=== PATIENT | female | born 1935 | race Caucasian/White ===

== ENCOUNTER 2016-10-02 23:40 | Inpatient (IN) | payer BC, MEDICARE, OTHER ==
[~2016-10-02] VITALS: Ht 167.6 cm; Wt 83.4 kg
[2016-10-03] VITALS (18 sets, daily range): BP systolic 102–133; BP diastolic 52–71
[2016-10-03 00:37] LABS: Basophils # (auto) 0 uL; Basophils % (auto) 0.5 % (0.0-2.0); Eosinophils # (auto) 0 uL; Eosinophils % (auto) 0.4 % (0.0-7.0); Hematocrit 39.9 % (36.0-46.0); Hemoglobin 13.1 g/dL (12.2-16.2); Lymphocytes # (auto) 0.3 uL; Lymphocytes % (auto) 12.6 % (10.0-50.0); Mean Corpuscular Hemoglobin 29.4 pg (28.0-32.0); Mean Corpuscular Hgb Conc. 32.8 g/dL (32.0-36.0); Mean Corpuscular Volume 89.5 fL (80.0-100.0); Mean Platelet Volume 7.6 fL (7.4-10.4); Monocytes # (auto) 0.2 uL; Monocytes % (auto) 7.9 % (0.0-12.0); Neutrophils # (auto) 1.7 uL; Neutrophils % (auto) 78.6 % (37.0-80.0); Platelet Count (auto) 176 10^3/uL (140-450); Red Cell Distribution Width 13.2 % (11.6-16.0); White Blood Cell 2.2 10^3/uL (4.4-10.8)
[2016-10-03 00:47] LABS: INR 0.98 (0.9-1.15); Prothrombin Time 10.7 sec (9.37-12.3)
[2016-10-03 00:54] LABS: Albumin 2.8 g/dL (3.4-5.0); Anion Gap 8 (5-15); Aspartate Aminotransferase 20 U/L (15-37); BUN/Creatinine Ratio 24.2; Blood Urea Nitrogen 23 mg/dL (7-18); Calcium 8.4 mg/dL (8.5-10.1); Carbon Dioxide 25 mmol/L (21-32); Chloride 109 mmol/L (98-107); GFR African American 73 mL/min; GFR Non-African American 60 mL/min; Glucose 105 mg/dL (74-106); Potassium 3.5 mmol/L (3.5-5.1); Sodium 142 mmol/L (136-145)
[2016-10-03 00:59] LABS: Alkaline Phosphatase 89 U/L (45-117); Bilirubin, Total 0.3 mg/dL (0.2-1.0)
[2016-10-03 01:02] LABS: B-Type Natriuretic Peptide 24.76 pg/mL (0-100)
[2016-10-03 01:03] LABS: Temperature: 21.7 C (20.0-25.0)
[2016-10-03] MEDS ORDERED: FUROSEMIDE 20 MG/2 ML VIAL IV ONE (01:45)
[2016-10-03] MEDS ORDERED: NOREPINEPHRINE BITARTRATE 250 ML IV STA (03:17)
[2016-10-03] MEDS ORDERED: MORPHINE SULFATE 4 MG/ML SYRG IV ONE (04:30)
[2016-10-03] MEDS: NOREPINEPHRINE BITARTRATE 250 ML IV SCH (07:37)
[2016-10-03] MEDS ORDERED: IOHEXOL 350 MG/ML 100ML IJ ONE (07:44)
[2016-10-03] MEDS ORDERED: NITROGLYCERIN 0.4 MG SL TAB SL PRN (07:45)
[2016-10-03] MEDS ORDERED: MORPHINE SULF INJ 2 MG/ML SYRINGE 1ML IV PRN (07:45)
[2016-10-03] MEDS ORDERED: ENOXAPARIN SOD 100 MG/1 ML SYRINGE SC ONE (07:45)
[2016-10-03] MEDS: MORPHINE SULF INJ 2 MG/ML SYRINGE 1ML IV PRN ×3 (09:15→20:20)
[2016-10-03] MEDS: ONDANSETRON HCL 4 MG/2 ML VIAL IV PRN ×2 (09:15→14:09)
[2016-10-03] MEDS: ENOXAPARIN SOD 40 MG/0.4 ML SYRINGE SC SCH (09:33)
[2016-10-03] MEDS: SODIUM CHLORIDE 0.9% 1,000 ML IV SCH ×2 (09:45→21:55)
[2016-10-03] MEDS ORDERED: ASPirin 81 mg TAB PO SCH (10:00)
[2016-10-03] MEDS: PANTOPRAZOLE SODIUM 40 MG/10 ML VIAL IV SCH (10:22)
[2016-10-03 11:37] LABS: Urine RBC None Seen /hpf (0 - 4)
[2016-10-03 11:46] LABS: Urine Bilirubin Negative (Negative); Urine Blood Negative /uL (Negative); Urine Color Yellow (Yellow); Urine Glucose Normal (Normal); Urine Hyaline Cast FEW /lpf (0 - 2); Urine Ketone Negative (Negative); Urine Mucus FEW (None Seen); Urine Nitrite Negative (Negative); Urine Squamous Epithelial Cell FEW /hpf (<5); Urine Urobilinogen Normal (Negative); Urine pH 5.5 (5.0-8.0)
[2016-10-03] MEDS ORDERED: guaiFENesin-DEXTROMETHORPHAN 5ML SYR PO PRN (15:30)
[2016-10-03] MEDS ORDERED: methylPREDNISolone SOD SUCC 40 MG/ML VL IV ONE (15:30)
[2016-10-03] MEDS: ACETAMINOPHEN 325 MG TAB PO PRN (15:58)
[2016-10-03] MEDS ORDERED: cefTRIAXone 1GM/50ML D5W 50 ML IV ONE (16:00)
[2016-10-03] MEDS ORDERED: AZITHROMYCIN 500MG/D5W 250ML 250 ML IV ONE (16:30)
[2016-10-03] MEDS ORDERED: POTASSIUM CHL 10% (20 MEQ/15ML) ORAL SOLN PO ONE (18:00)
[2016-10-03] MEDS: IPRATROPIUM BROM 0.5 MG/2.5ML INH SOL NEB SCH ×2 (18:21→21:43)
[2016-10-03] MEDS: ALBUTEROL SULF 2.5 MG/0.5ML(0.5%) NEB SOLN NEB PRN (18:31)
[2016-10-03] MEDS ORDERED: GABA250S2 PO (21:57)
[2016-10-03] MEDS ORDERED: OMEP20CA74 PO (21:57)
[2016-10-03] MEDS: methylPREDNISolone SOD SUCC 40 MG/ML VL IV SCH (21:59)
[2016-10-04] VITALS (25 sets, daily range): BP systolic 105–149; BP diastolic 49–95
[2016-10-04] MEDS: IPRATROPIUM BROM 0.5 MG/2.5ML INH SOL NEB SCH ×6 (00:01→18:52)
[2016-10-04] MEDS: MORPHINE SULF INJ 2 MG/ML SYRINGE 1ML IV PRN (02:54)
[2016-10-04 04:19] LABS: Basophils # (auto) 0 uL; CONDITION Y; Eosinophils # (auto) 0 uL; Hematocrit 35.7 % (36.0-46.0); Hemoglobin 11.8 g/dL (12.2-16.2); Lymphocytes # (auto) 0.5 uL; Mean Corpuscular Hgb Conc. 33.1 g/dL (32.0-36.0); Mean Corpuscular Volume 90.8 fL (80.0-100.0); Mean Platelet Volume 8.8 fL (7.4-10.4); Monocytes # (auto) 0.2 uL; Monocytes % (auto) 1.5 % (0.0-12.0); Neutrophils # (auto) 9.2 uL; Neutrophils % (auto) 93.5 % (37.0-80.0); Platelet Count (auto) 148 10^3/uL (140-450); Red Cell Distribution Width 14.2 % (11.6-16.0); White Blood Cell 9.9 10^3/uL (4.4-10.8)
[2016-10-04 05:02] LABS: Albumin 2.4 g/dL (3.4-5.0); BUN/Creatinine Ratio 28.8; Bilirubin, Total 0.3 mg/dL (0.2-1.0); Calcium 9.1 mg/dL (8.5-10.1); Potassium 4.7 mmol/L (3.5-5.1); Total Protein 5.8 g/dL (6.4-8.2)
[2016-10-04] MEDS: NOREPINEPHRINE BITARTRATE 250 ML IV SCH (07:37)
[2016-10-04] MEDS: ACETAMINOPHEN 325 MG TAB PO PRN (08:44)
[2016-10-04] MEDS: cefTRIAXone 1GM/50ML D5W 50 ML IV SCH (09:09)
[2016-10-04] MEDS: methylPREDNISolone SOD SUCC 40 MG/ML VL IV SCH ×2 (09:33→21:59)
[2016-10-04] MEDS: PANTOPRAZOLE SODIUM 40 MG/10 ML VIAL IV SCH (09:33)
[2016-10-04] MEDS: AZITHROMYCIN 500MG/D5W 250ML 250 ML IV SCH (09:34)
[2016-10-04] MEDS: ASPirin 81 mg TAB PO SCH (09:34)
[2016-10-04] MEDS: ENOXAPARIN SOD 40 MG/0.4 ML SYRINGE SC SCH (09:35)
[2016-10-04] MEDS ORDERED: HYDROmorphone HCL 2 MG/ML VL IV PRN (09:45)
[2016-10-04] MEDS ORDERED: PANTOPRAZOLE 40 MG TAB PO SCH (10:00)
[2016-10-04] MEDS: SODIUM CHLORIDE 0.9% 1,000 ML IV SCH (11:44)
[2016-10-04] MEDS: ONDANSETRON HCL 4 MG/2 ML VIAL IV PRN (12:33)
[2016-10-04] MEDS: ALBUTEROL SULF 2.5 MG/0.5ML(0.5%) NEB SOLN NEB PRN (18:52)
[2016-10-04] MEDS: HYDROcodone-ACET 5/325MG TAB PO PRN (20:18)
[2016-10-05] MEDS: IPRATROPIUM BROM 0.5 MG/2.5ML INH SOL NEB SCH ×5 (02:00→22:01)
[2016-10-05] MEDS: SODIUM CHLORIDE 0.9% 1,000 ML IV SCH ×2 (03:09→16:49)
[2016-10-05 05:00] VITALS: BP 163/96
[2016-10-05] MEDS: HYDROcodone-ACET 5/325MG TAB PO PRN (05:23)
[2016-10-05 06:37] LABS: Basophils # (auto) 0 uL; CONDITION Y; Eosinophils # (auto) 0 uL; Hematocrit 38.3 % (36.0-46.0); Hemoglobin 13.2 g/dL (12.2-16.2); Lymphocytes # (auto) 0.8 uL; Lymphocytes % (auto) 7.4 % (10.0-50.0); Mean Corpuscular Hemoglobin 30.6 pg (28.0-32.0); Mean Corpuscular Hgb Conc. 34.5 g/dL (32.0-36.0); Mean Corpuscular Volume 88.8 fL (80.0-100.0); Mean Platelet Volume 8.7 fL (7.4-10.4); Monocytes # (auto) 0.4 uL; Monocytes % (auto) 3.5 % (0.0-12.0); Neutrophils # (auto) 9.6 uL; Neutrophils % (auto) 89.1 % (37.0-80.0); Platelet Count (auto) 160 10^3/uL (140-450); White Blood Cell 10.8 10^3/uL (4.4-10.8)
[2016-10-05 07:10] LABS: Albumin 2.5 g/dL (3.4-5.0); BUN/Creatinine Ratio 24.3; Bilirubin, Total 0.4 mg/dL (0.2-1.0); Calcium 9.3 mg/dL (8.5-10.1); Total Protein 6.1 g/dL (6.4-8.2)
[2016-10-05] MEDS ORDERED: GASTROGRAFIN 30 ML SOL ONE (07:45)
[2016-10-05] MEDS: ONDANSETRON HCL 4 MG/2 ML VIAL IV PRN (08:57)
[2016-10-05 09:00] VITALS: BP 127/93
[2016-10-05] MEDS ORDERED: IOHEXOL 300 MG/ML 100ML BOTTLE IJ ONE (10:28)
[2016-10-05] MEDS: cefTRIAXone 1GM/50ML D5W 50 ML IV SCH (12:20)
[2016-10-05] MEDS: methylPREDNISolone SOD SUCC 40 MG/ML VL IV SCH ×2 (12:21→21:19)
[2016-10-05] MEDS: ASPirin 81 mg TAB PO SCH (12:21)
[2016-10-05] MEDS: ENOXAPARIN SOD 40 MG/0.4 ML SYRINGE SC SCH (12:21)
[2016-10-05] MEDS: PANTOPRAZOLE 40 MG TAB PO SCH (12:22)
[2016-10-05] MEDS: AZITHROMYCIN 500MG/D5W 250ML 250 ML IV SCH (12:22)
[2016-10-05 13:00] VITALS: BP 160/91
[2016-10-05] MEDS ORDERED: IBUPROFEN 400 MG TAB PO PRN (14:30)
[2016-10-05 17:08] VITALS: BP 155/81
[2016-10-05] MEDS: IBUPROFEN 400 MG TAB PO PRN (19:52)
[2016-10-05 22:00] VITALS: BP 126/95
[2016-10-06] MEDS: IPRATROPIUM BROM 0.5 MG/2.5ML INH SOL NEB SCH ×6 (02:00→22:18)
[2016-10-06 05:00] VITALS: BP 162/70
[2016-10-06 06:28] LABS: Albumin 2.4 g/dL (3.4-5.0); BUN/Creatinine Ratio 32.4; Bilirubin, Total 0.5 mg/dL (0.2-1.0); Calcium 9.2 mg/dL (8.5-10.1); Potassium 3.7 mmol/L (3.5-5.1); Total Protein 6.2 g/dL (6.4-8.2)
[2016-10-06] MEDS ORDERED: NITROGLYCERIN 0.4 MG SL TAB SL PRN ×2 (07:00)
[2016-10-06] MEDS ORDERED: MORPHINE SULF INJ 2 MG/ML SYRINGE 1ML IV PRN ×2 (07:00)
[2016-10-06] MEDS: SODIUM CHLORIDE 0.9% 1,000 ML IV SCH (07:07)
[2016-10-06 09:00] VITALS: BP 155/92
[2016-10-06] MEDS: cefTRIAXone 1GM/50ML D5W 50 ML IV SCH (09:03)
[2016-10-06] MEDS: IBUPROFEN 400 MG TAB PO PRN (09:04)
[2016-10-06] MEDS: ENOXAPARIN SOD 40 MG/0.4 ML SYRINGE SC SCH (09:04)
[2016-10-06] MEDS: PANTOPRAZOLE 40 MG TAB PO SCH (09:05)
[2016-10-06] MEDS: ASPirin 81 mg TAB PO SCH (09:05)
[2016-10-06] MEDS: methylPREDNISolone SOD SUCC 40 MG/ML VL IV SCH (09:05)
[2016-10-06] MEDS: AZITHROMYCIN 500MG/D5W 250ML 250 ML IV SCH (09:34)
[2016-10-06 13:00] VITALS: BP 153/94
[2016-10-06] MEDS ORDERED: SODIUM CHLOR 0.9% PF (SALINE LOCK) 10ML VIAL IV SCH (14:00)
[2016-10-06 17:36] VITALS: BP 153/94
[2016-10-06 21:51] VITALS: BP 135/76
[2016-10-07] MEDS: IPRATROPIUM BROM 0.5 MG/2.5ML INH SOL NEB SCH ×4 (02:00→13:20)
[2016-10-07 03:05] VITALS: BP 135/76
[2016-10-07] MEDS: HYDROcodone-ACET 5/325MG TAB PO PRN (03:37)
[2016-10-07 05:06] VITALS: BP 138/78
[2016-10-07] MEDS: ALBUTEROL SULF 2.5 MG/0.5ML(0.5%) NEB SOLN NEB PRN ×3 (06:49→13:20)
[2016-10-07 06:56] LABS: Basophils # (auto) 0 uL; Basophils % (auto) 0.2 % (0.0-2.0); CONDITION Y; Eosinophils # (auto) 0.1 uL; Eosinophils % (auto) 0.8 % (0.0-7.0); Hemoglobin 13.8 g/dL (12.2-16.2); Lymphocytes # (auto) 2.4 uL; Lymphocytes % (auto) 22.5 % (10.0-50.0); Mean Corpuscular Hemoglobin 29.8 pg (28.0-32.0); Mean Corpuscular Hgb Conc. 33.5 g/dL (32.0-36.0); Mean Corpuscular Volume 88.7 fL (80.0-100.0); Mean Platelet Volume 8.5 fL (7.4-10.4); Monocytes # (auto) 0.8 uL; Monocytes % (auto) 7.9 % (0.0-12.0); Neutrophils # (auto) 7.3 uL; Neutrophils % (auto) 68.6 % (37.0-80.0); Platelet Count (auto) 213 10^3/uL (140-450); Red Cell Distribution Width 13.9 % (11.6-16.0); White Blood Cell 10.7 10^3/uL (4.4-10.8)
[2016-10-07 07:26] LABS: BUN/Creatinine Ratio 31.6; Calcium 9.2 mg/dL (8.5-10.1); Potassium 3.5 mmol/L (3.5-5.1)
[2016-10-07 09:00] VITALS: BP 120/71
[2016-10-07] MEDS ORDERED: predniSONE 20 MG TAB PO SCH (10:00)
[2016-10-07] MEDS: ENOXAPARIN SOD 40 MG/0.4 ML SYRINGE SC SCH (10:19)
[2016-10-07] MEDS: ASPirin 81 mg TAB PO SCH (10:20)
[2016-10-07] MEDS: PANTOPRAZOLE 40 MG TAB PO SCH (10:21)
[2016-10-07] MEDS: cefTRIAXone 1GM/50ML D5W 50 ML IV SCH (10:27)
[2016-10-07] MEDS: AZITHROMYCIN 500MG/D5W 250ML 250 ML IV SCH (10:27)
[2016-10-07] MEDS ORDERED: AZITHROMYCIN 250 MG TAB PO ONE (12:45)
[2016-10-07 12:56] VITALS: BP 123/78
[2016-10-07 13:05] LABS: Base Excess 4.5 mmol/L (-2.0-2.0); Blood 02Sat 90.8 % (96-100); Blood COHb 1.1 % (0.5-1.5); Blood MetHb 0.3 % (0.0-1.5); HHb 9.1 % (0.0-5.0); MODE ROOM AIR; O2Hb 89.5 % (94.0-97.0); PCO2 37.9 mmHg (35.0-45.0); PCO2(T) 37.9 mmHg (35.0-45.0); PO2 59.3 mmHg (80.0-100.0); PO2(T) 59.3 mmHg (80.0-100.0); Sample Type Arterial; pH 7.486 (7.350-7.450)
[2016-10-07] MEDS ORDERED: DEXTSYP8 PO (13:45)
[2016-10-07] MEDS ORDERED: LEVO750T2 PO (13:45)
[2016-10-07] MEDS ORDERED: PANT40T PO (13:45)
[2016-10-07] MEDS ORDERED: ALBUAER3 IN (13:54)
[2016-10-07 14:01] VITALS: BP 102/61
[2016-10-07] MEDS ORDERED: LACTULOSE 20Gm/30ML SOLN ONE (15:46)
[2016-10-07] MEDS ORDERED: LACTULOSE 20Gm/30ML SOLN PO ONE (16:15)
== END 2016-10-07 16:39 | disposition home or self-care (01) | DRG 871 ==
LOC: EDBD 23:40 → ER 23:40 → TELE 23:41 → ICU WEST 10-03 18:20 → TELE-EAST 10-04 14:05 → EAST 10-06 14:22
PROVIDERS: ADMIT Nurse Practitioner; ATTEND Internal Medicine
DX: A41.9 Sepsis, unspecified organism (principal); J96.01 Acute respiratory failure with hypoxia; J18.9 Pneumonia, unspecified organism; E44.1 Mild protein-calorie malnutrition; J44.1 Chronic obstructive pulmonary disease with (acute) exacerbation; J98.11 Atelectasis; G62.9 Polyneuropathy, unspecified; I95.9 Hypotension, unspecified; K21.9 Gastro-esophageal reflux disease without esophagitis; I50.9 Heart failure, unspecified; Z87.891 Personal history of nicotine dependence; Z87.440 Personal history of urinary (tract) infections; Z79.899 Other long term (current) drug therapy; Z68.29 Body mass index [BMI] 29.0-29.9, adult
CPT/HCPCS: 36415; 36600; 71010; 71275; 74176; 74177; 76705; 80048; 80053; 80061; 81001; 82378; 82805; 82962; 83605; 83735; 83880; 84484; 85025; 85379; 85610; 85730; 86304; 87040; 87070; 87081; 87205; 92610; 93005; 93306; 93970; 94640; 96365; 96372; 96375; 97116; 97163; 97530; C9113; J0696; J2405

== ENCOUNTER 2016-11-28 17:02 | Inpatient (IN) | payer BC ==
[~2016-11-28] VITALS: Ht 167.6 cm; Wt 75.9 kg
[~2016-11-28 17:02] MED LIST: ALBUAER3 IN; DEXTSYP8 PO; GABA250S2 PO; LEVO750T2 PO; LISI10TA6 PO; OMEP20CA74 PO; PANT40T PO
[2016-11-28 18:05] LABS: Basophils # (auto) 0 uL; Basophils % (auto) 0.2 % (0.0-2.0); Eosinophils # (auto) 0 uL; Eosinophils % (auto) 0.2 % (0.0-7.0); Hematocrit 40.5 % (36.0-46.0); Hemoglobin 13.8 g/dL (12.2-16.2); Lymphocytes # (auto) 0.3 uL; Lymphocytes % (auto) 5.4 % (10.0-50.0); Mean Corpuscular Hemoglobin 30.6 pg (28.0-32.0); Mean Corpuscular Volume 90.1 fL (80.0-100.0); Mean Platelet Volume 7.9 fL (7.4-10.4); Monocytes # (auto) 0 uL; Monocytes % (auto) 0.4 % (0.0-12.0); Neutrophils # (auto) 5.5 uL; Neutrophils % (auto) 93.8 % (37.0-80.0); Nucleated Red Blood Cells % 0.1 %; Platelet Count (auto) 139 10^3/uL (140-450); White Blood Cell 5.8 10^3/uL (4.4-10.8)
[2016-11-28 18:34] LABS: Albumin 3.1 g/dL (3.4-5.0); Alkaline Phosphatase 94 U/L (45-117); Anion Gap 8 (5-15); Aspartate Aminotransferase 28 U/L (15-37); BUN/Creatinine Ratio 17.7; Bilirubin, Total 0.7 mg/dL (0.2-1.0); Blood Urea Nitrogen 11 mg/dL (7-18); Calcium 9.1 mg/dL (8.5-10.1); Carbon Dioxide 26 mmol/L (21-32); Chloride 104 mmol/L (98-107); GFR African American 119 mL/min; GFR Non-African American 99 mL/min; Glucose 151 mg/dL (74-106); Potassium 3.5 mmol/L (3.5-5.1); Sodium 138 mmol/L (136-145); Total Protein 6.8 g/dL (6.4-8.2)
[2016-11-28 18:38] LABS: B-Type Natriuretic Peptide 51.68 pg/mL (0-100)
[2016-11-28 18:46] LABS: Temperature: 23.9 C (20.0-25.0)
[2016-11-28] MEDS ORDERED: HYDROcodone-ACET 10/325MG TAB PO ONE (20:45)
[2016-11-28] MEDS ORDERED: IPRATROPIUM BROM 0.5 MG/2.5ML INH SOL NEB ONE (20:45)
[2016-11-28] MEDS ORDERED: ALBUTEROL SULF 2.5 MG/0.5ML(0.5%) NEB SOLN NEB ONE (20:45)
[2016-11-28] MEDS ORDERED: AZITHROMYCIN 500MG/D5W 250ML 250 ML IV ONE (20:45)
[2016-11-28] MEDS ORDERED: NITROGLYCERIN 0.4 MG SL TAB SL PRN (21:45)
[2016-11-28] MEDS ORDERED: ACETAMINOPHEN 325 MG TAB PO PRN (21:45)
[2016-11-28] MEDS ORDERED: MORPHINE SULF INJ 2 MG/ML SYRINGE 1ML IV PRN ×2 (21:45)
[2016-11-28] MEDS ORDERED: ONDANSETRON HCL 4 MG/2 ML VIAL IV PRN (21:45)
[2016-11-28] MEDS ORDERED: TEMAZEPAM 15 MG CAP PO PRN (21:45)
[2016-11-28] MEDS ORDERED: cefTRIAXone 1GM/50ML D5W 50 ML IV ONE (21:45)
[2016-11-28] MEDS: methylPREDNISolone SOD SUCC 125 MG/2 ML VL IV SCH (22:11)
[2016-11-28] MEDS: FAMOTIDINE 20 MG TAB PO SCH (22:11)
[2016-11-28 23:00] VITALS: BP 120/54
[2016-11-28 23:06] VITALS: BP 119/65
[2016-11-28 23:27] LABS: Urine Bilirubin Negative (Negative); Urine Blood Negative /uL (Negative); Urine Color Yellow (Yellow); Urine Glucose Normal (Normal); Urine Hyaline Cast FEW /lpf (0 - 2); Urine Ketone 1+ (Negative); Urine Mucus FEW (None Seen); Urine Nitrite Negative (Negative); Urine RBC 2 /hpf (0 - 4); Urine Squamous Epithelial Cell FEW /hpf (<5); Urine Urobilinogen Normal (Negative); Urine pH 5.5 (5.0-8.0)
[2016-11-28 23:36] VITALS: BP 120/54
[2016-11-28 23:42] VITALS: BP 149/87
[2016-11-29] VITALS (7 sets, daily range): BP systolic 112–148; BP diastolic 54–88
[2016-11-29 07:03] LABS: Basophils # (auto) 0 uL; Basophils % (auto) 0.1 % (0.0-2.0); Eosinophils # (auto) 0 uL; Hematocrit 37.8 % (36.0-46.0); Hemoglobin 12.6 g/dL (12.2-16.2); Lymphocytes # (auto) 0.3 uL; Lymphocytes % (auto) 2.7 % (10.0-50.0); Mean Corpuscular Hemoglobin 30.4 pg (28.0-32.0); Mean Corpuscular Hgb Conc. 33.3 g/dL (32.0-36.0); Mean Corpuscular Volume 91.2 fL (80.0-100.0); Monocytes # (auto) 0.1 uL; Neutrophils # (auto) 9.9 uL; Neutrophils % (auto) 96.2 % (37.0-80.0); Platelet Count (auto) 136 10^3/uL (140-450); Red Cell Distribution Width 14.9 % (11.6-16.0); White Blood Cell 10.3 10^3/uL (4.4-10.8)
[2016-11-29 07:27] LABS: Albumin 2.6 g/dL (3.4-5.0); BUN/Creatinine Ratio 27.3; Bilirubin, Total 0.7 mg/dL (0.2-1.0); Potassium 3.8 mmol/L (3.5-5.1); Total Protein 6.2 g/dL (6.4-8.2)
[2016-11-29] MEDS: ALBUTEROL SULF 2.5 MG/0.5ML(0.5%) NEB SOLN NEB PRN (08:27)
[2016-11-29] MEDS: IPRATROPIUM BROM 0.5 MG/2.5ML INH SOL NEB PRN (08:27)
[2016-11-29] MEDS: FAMOTIDINE 20 MG TAB PO SCH ×2 (09:09→21:43)
[2016-11-29] MEDS: methylPREDNISolone SOD SUCC 125 MG/2 ML VL IV SCH ×2 (09:09→21:43)
[2016-11-29] MEDS: ENOXAPARIN SOD 40 MG/0.4 ML SYRINGE SC SCH (09:09)
[2016-11-29] MEDS: cefTRIAXone 1GM/50ML D5W 50 ML IV SCH (09:09)
[2016-11-29] MEDS: AZITHROMYCIN 500MG/D5W 250ML 250 ML IV SCH (09:10)
[2016-11-29] MEDS ORDERED: FURO40TA4 PO (12:34)
[2016-11-29] MEDS ORDERED: POTA10TA51 PO (12:34)
[2016-11-29] MEDS: HYDROcodone-ACET 5/325MG TAB PO PRN (15:59)
[2016-11-30 05:00] VITALS: BP 137/73
[2016-11-30 09:28] VITALS: BP 135/80
[2016-11-30] MEDS: cefTRIAXone 1GM/50ML D5W 50 ML IV SCH (09:55)
[2016-11-30] MEDS: ENOXAPARIN SOD 40 MG/0.4 ML SYRINGE SC SCH (09:55)
[2016-11-30] MEDS: methylPREDNISolone SOD SUCC 125 MG/2 ML VL IV SCH ×2 (09:55→22:00)
[2016-11-30] MEDS: FAMOTIDINE 20 MG TAB PO SCH ×2 (09:55→21:54)
[2016-11-30] MEDS: AZITHROMYCIN 500MG/D5W 250ML 250 ML IV SCH (11:15)
[2016-11-30 12:49] VITALS: BP 140/95
[2016-11-30 16:48] VITALS: BP 140/62
[2016-11-30] MEDS: ALBUTEROL SULF 2.5 MG/0.5ML(0.5%) NEB SOLN NEB PRN (19:34)
[2016-11-30] MEDS: IPRATROPIUM BROM 0.5 MG/2.5ML INH SOL NEB PRN (19:34)
[2016-11-30 20:30] VITALS: BP 125/75
[2016-11-30] MEDS: HYDROcodone-ACET 5/325MG TAB PO PRN (21:59)
[2016-11-30 22:00] VITALS: BP 125/75
[2016-12-01] VITALS (8 sets, daily range): BP systolic 125–158; BP diastolic 64–95
[2016-12-01] MEDS: cefTRIAXone 1GM/50ML D5W 50 ML IV SCH (09:45)
[2016-12-01] MEDS: methylPREDNISolone SOD SUCC 125 MG/2 ML VL IV SCH ×2 (09:46→21:45)
[2016-12-01] MEDS: FAMOTIDINE 20 MG TAB PO SCH ×2 (09:46→21:45)
[2016-12-01] MEDS: ENOXAPARIN SOD 40 MG/0.4 ML SYRINGE SC SCH (09:46)
[2016-12-01] MEDS: AZITHROMYCIN 500MG/D5W 250ML 250 ML IV SCH (13:20)
[2016-12-01 14:56] LABS: Basophils # (auto) 0 uL; Basophils % (auto) 0.1 % (0.0-2.0); Eosinophils # (auto) 0 uL; Hematocrit 42.5 % (36.0-46.0); Hemoglobin 13.8 g/dL (12.2-16.2); Lymphocytes # (auto) 0.6 uL; Lymphocytes % (auto) 5.5 % (10.0-50.0); Mean Corpuscular Hgb Conc. 32.5 g/dL (32.0-36.0); Mean Corpuscular Volume 89.2 fL (80.0-100.0); Monocytes # (auto) 0.5 uL; Monocytes % (auto) 4.9 % (0.0-12.0); Neutrophils % (auto) 89.5 % (37.0-80.0); Platelet Count (auto) 249 10^3/uL (140-450); Red Cell Distribution Width 14.8 % (11.6-16.0); White Blood Cell 11.2 10^3/uL (4.4-10.8)
[2016-12-01 16:39] LABS: Albumin 2.8 g/dL (3.4-5.0); BUN/Creatinine Ratio 18.6; Bilirubin, Total 0.3 mg/dL (0.2-1.0); Calcium 9.7 mg/dL (8.5-10.1); Potassium 3.8 mmol/L (3.5-5.1); Total Protein 6.8 g/dL (6.4-8.2)
[2016-12-01] MEDS: NYSTATIN (MOUTH-THROAT) 500,000 UNITS/5 ML SUSP MT SCH ×2 (17:48→21:45)
[2016-12-01] MEDS ORDERED: GABAPENTIN 300 MG CAP PO SCH (22:00)
[2016-12-02 05:13] VITALS: BP 127/87
[2016-12-02] MEDS: NYSTATIN (MOUTH-THROAT) 500,000 UNITS/5 ML SUSP MT SCH (06:02)
[2016-12-02 08:00] VITALS: BP 127/87
[2016-12-02] MEDS: cefTRIAXone 1GM/50ML D5W 50 ML IV SCH (09:00)
[2016-12-02] MEDS: ENOXAPARIN SOD 40 MG/0.4 ML SYRINGE SC SCH (09:50)
[2016-12-02] MEDS: AZITHROMYCIN 500MG/D5W 250ML 250 ML IV SCH (09:50)
[2016-12-02] MEDS: FAMOTIDINE 20 MG TAB PO SCH (09:50)
[2016-12-02 10:21] VITALS: BP 152/80
[2016-12-02 10:28] VITALS: BP 132/75
== END 2016-12-02 11:50 | disposition home or self-care (01) | DRG 189 ==
LOC: EDBD 17:02 → ER 17:04 → TELE 17:05 → TELE-WESTW 22:51
PROVIDERS: ADMIT Nurse Practitioner; ATTEND Internal Medicine
DX: J96.20 Acute and chronic respiratory failure, unspecified whether with hypoxia or hypercapnia (principal); I50.33 Acute on chronic diastolic (congestive) heart failure; R65.10 Systemic inflammatory response syndrome (SIRS) of non-infectious origin without acute organ dysfunction; I11.0 Hypertensive heart disease with heart failure; J44.0 Chronic obstructive pulmonary disease with (acute) lower respiratory infection; G62.9 Polyneuropathy, unspecified; J44.1 Chronic obstructive pulmonary disease with (acute) exacerbation; J98.6 Disorders of diaphragm; E78.5 Hyperlipidemia, unspecified; J20.9 Acute bronchitis, unspecified; K44.9 Diaphragmatic hernia without obstruction or gangrene; E78.00 Pure hypercholesterolemia, unspecified; Z90.49 Acquired absence of other specified parts of digestive tract; Z87.891 Personal history of nicotine dependence; Z83.3 Family history of diabetes mellitus; Z82.49 Family history of ischemic heart disease and other diseases of the circulatory system; Z98.51 Tubal ligation status
CPT/HCPCS: 36415; 36600; 71010; 71020; 71275; 80053; 81001; 82805; 83605; 83880; 84484; 85025; 87040; 87070; 87081; 87086; 87205; 93005; 94640; 96365; 96366; 96367; 99291; J0696

== ENCOUNTER 2016-12-12 14:36 | Inpatient (IN) | payer BC, MEDICARE ==
[~2016-12-12] VITALS: Ht 167.6 cm; Wt 80.6 kg
[~2016-12-12 14:36] MED LIST changes: +FURO40TA4 PO; -LEVO750T2 PO; -LISI10TA6 PO; +POTA10TA51 PO
[2016-12-12] MEDS ORDERED: FUROSEMIDE 40 MG/4 ML VIAL IV ONE (15:15)
[2016-12-12 15:27] LABS: Basophils # (auto) 0.1 uL; Basophils % (auto) 0.4 % (0.0-2.0); Eosinophils # (auto) 0 uL; Eosinophils % (auto) 0.1 % (0.0-7.0); Hematocrit 41.8 % (36.0-46.0); Hemoglobin 13.9 g/dL (12.2-16.2); Lymphocytes # (auto) 0.2 uL; Lymphocytes % (auto) 1.5 % (10.0-50.0); Mean Corpuscular Hemoglobin 30.1 pg (28.0-32.0); Mean Corpuscular Hgb Conc. 33.2 g/dL (32.0-36.0); Mean Corpuscular Volume 90.7 fL (80.0-100.0); Monocytes # (auto) 0.1 uL; Neutrophils # (auto) 13.6 uL; Nucleated Red Blood Cells % 0.1 %; Platelet Count (auto) 150 10^3/uL (140-450); Red Cell Distribution Width 14.6 % (11.8-14.3); White Blood Cell 14.1 10^3/uL (4.4-10.8)
[2016-12-12] MEDS ORDERED: AZIT250T5 (15:33)
[2016-12-12] MEDS ORDERED: PRED-559 (15:33)
[2016-12-12 15:36] LABS: Albumin 2.9 g/dL (3.4-5.0); BUN/Creatinine Ratio 16.7; Bilirubin, Total 0.7 mg/dL (0.2-1.0); Calcium 8.6 mg/dL (8.5-10.1); Potassium 3.7 mmol/L (3.5-5.1); Total Protein 6.4 g/dL (6.4-8.2)
[2016-12-12 15:40] LABS: Allen Test Yes; Base Excess -0.2 mmol/L (-2.0-2.0); Blood 02Sat 93.2 % (96-100); Blood COHb 0.3 % (0.5-1.5); Blood MetHb 0.5 % (0.0-1.5); HCO3 23.5 mmol/L (22-26.0); HHb 6.7 % (0.0-5.0); MODE MASK - NRB; O2Hb 92.5 % (94.0-97.0); PCO2 35.7 mmHg (35.0-45.0); PCO2(T) 35.7 mmHg (35.0-45.0); Sample Type Arterial; pH 7.437 (7.350-7.450)
[2016-12-12] MEDS ORDERED: ALBUTEROL SULF 2.5 MG/0.5ML(0.5%) NEB SOLN ONE (15:44)
[2016-12-12] MEDS ORDERED: IPRATROPIUM BROM 0.5 MG/2.5ML INH SOL HHN ONE (15:45)
[2016-12-12] MEDS ORDERED: methylPREDNISolone SOD SUCC 125 MG/2 ML VL IV ONE (15:45)
[2016-12-12] MEDS ORDERED: ALBUTEROL SULF 2.5 MG/0.5ML(0.5%) NEB SOLN HHN ONE (15:45)
[2016-12-12 16:00] LABS: B-Type Natriuretic Peptide 57.37 pg/mL (0-100)
[2016-12-12] MEDS ORDERED: LORazepam 0.5 MG TAB PO PRN (16:00)
[2016-12-12] MEDS ORDERED: DOXYCYCLINE HYC 100MG/250ML 250 ML IV SCH (16:00)
[2016-12-12] MEDS ORDERED: MORPHINE SULF INJ 2 MG/ML SYRINGE 1ML IV PRN ×2 (16:00)
[2016-12-12] MEDS ORDERED: NITROGLYCERIN 0.4 MG SL TAB SL PRN (16:00)
[2016-12-12] MEDS ORDERED: TEMAZEPAM 15 MG CAP PO PRN (16:00)
[2016-12-12] MEDS ORDERED: ACETAMINOPHEN 500 MG TAB PO PRN (16:00)
[2016-12-12] MEDS ORDERED: LACTULOSE 20Gm/30ML SOLN PO PRN (16:00)
[2016-12-12] MEDS ORDERED: LEVOFLOXACIN 500MG 100 ML IV ONE (16:00)
[2016-12-12] MEDS ORDERED: ALBUTEROL SULF 2.5 MG/0.5ML(0.5%) NEB SOLN NEB PRN (16:00)
[2016-12-12] MEDS ORDERED: PROMETHAZINE HCL 25 MG/ML 1ML IV PRN (16:00)
[2016-12-12 16:06] LABS: Urine Bilirubin Negative (Negative); Urine Blood Negative /uL (Negative); Urine Color Yellow (Yellow); Urine Glucose Normal (Normal); Urine Ketone Negative (Negative); Urine Nitrite Negative (Negative); Urine RBC <1 /hpf (0 - 4); Urine Squamous Epithelial Cell FEW /hpf (<5); Urine Urobilinogen Normal (Negative); Urine pH 6.5 (5.0-8.0)
[2016-12-12] MEDS: HYDROcodone-ACET 5/325MG TAB PO PRN ×2 (16:52→18:04)
[2016-12-12] MEDS: methylPREDNISolone SOD SUCC 40 MG/ML VL IV SCH ×2 (18:00→23:54)
[2016-12-12] MEDS: ENOXAPARIN SOD 40 MG/0.4 ML SYRINGE SC SCH (18:04)
[2016-12-12] MEDS: ALBUTEROL SULF 2.5 MG/0.5ML(0.5%) NEB SOLN NEB SCH (18:29)
[2016-12-12] MEDS: IPRATROPIUM BROM 0.5 MG/2.5ML INH SOL NEB SCH (18:29)
[2016-12-12 19:37] VITALS: BP 103/60
[2016-12-12 22:00] VITALS: BP 109/61
[2016-12-13] MEDS: ALBUTEROL SULF 2.5 MG/0.5ML(0.5%) NEB SOLN NEB SCH ×4 (00:42→18:00)
[2016-12-13] MEDS: IPRATROPIUM BROM 0.5 MG/2.5ML INH SOL NEB SCH ×4 (00:42→18:00)
[2016-12-13 05:00] VITALS: BP 115/64
[2016-12-13] MEDS: methylPREDNISolone SOD SUCC 40 MG/ML VL IV SCH ×2 (05:14→13:39)
[2016-12-13 07:55] VITALS: BP 138/82
[2016-12-13 09:00] VITALS: BP 129/70
[2016-12-13] MEDS ORDERED: LEVOFLOXACIN 500MG 100 ML IV SCH (10:00)
[2016-12-13] MEDS ORDERED: diphenhdrAMINE HCL 50 MG/1 ML VL IV ONE (10:15)
[2016-12-13 13:00] VITALS: BP 138/82
[2016-12-13] MEDS ORDERED: PANTOPRAZOLE 40 MG TAB PO ONE (13:15)
[2016-12-13 17:00] VITALS: BP 131/72
[2016-12-13] MEDS: ENOXAPARIN SOD 40 MG/0.4 ML SYRINGE SC SCH (18:58)
[2016-12-13] MEDS ORDERED: IOHEXOL 350 MG/ML 100ML IJ ONE (19:12)
[2016-12-13] MEDS: GABAPENTIN 300 MG CAP PO SCH (21:42)
[2016-12-13 21:45] VITALS: BP 132/78
[2016-12-13] MEDS ORDERED: GABAPENTIN 300 MG CAP PO SCH (22:00)
[2016-12-13] MEDS: HYDROcodone-ACET 5/325MG TAB PO PRN (22:36)
[2016-12-14] MEDS: IPRATROPIUM BROM 0.5 MG/2.5ML INH SOL NEB SCH ×4 (00:24→18:56)
[2016-12-14] MEDS: ALBUTEROL SULF 2.5 MG/0.5ML(0.5%) NEB SOLN NEB SCH ×4 (00:24→18:56)
[2016-12-14 04:48] VITALS: BP 140/82
[2016-12-14 09:00] VITALS: BP 119/69
[2016-12-14] MEDS: PANTOPRAZOLE 40 MG TAB PO SCH (10:18)
[2016-12-14 13:00] VITALS: BP 112/63
[2016-12-14 17:00] VITALS: BP 122/70
[2016-12-14] MEDS: ENOXAPARIN SOD 40 MG/0.4 ML SYRINGE SC SCH (17:04)
[2016-12-14 20:15] VITALS: BP 117/66
[2016-12-14 21:30] VITALS: BP 117/66
[2016-12-14] MEDS: GABAPENTIN 300 MG CAP PO SCH (22:27)
[2016-12-15] MEDS: ALBUTEROL SULF 2.5 MG/0.5ML(0.5%) NEB SOLN NEB SCH ×3 (00:43→13:33)
[2016-12-15] MEDS: IPRATROPIUM BROM 0.5 MG/2.5ML INH SOL NEB SCH ×3 (00:43→13:33)
[2016-12-15 05:15] VITALS: BP 122/68
[2016-12-15 09:43] VITALS: BP 114/64
[2016-12-15] MEDS: PANTOPRAZOLE 40 MG TAB PO SCH (09:43)
== END 2016-12-15 13:55 | disposition home or self-care (01) | DRG 190 ==
LOC: ER 14:36 → EDBD 14:36 → TELE 14:37 → TELE-CENTR 18:58
PROVIDERS: ADMIT Internal Medicine; ATTEND Internal Medicine
DX: J44.1 Chronic obstructive pulmonary disease with (acute) exacerbation (principal); I50.33 Acute on chronic diastolic (congestive) heart failure; I48.91 Unspecified atrial fibrillation; J98.6 Disorders of diaphragm; I11.0 Hypertensive heart disease with heart failure; K21.9 Gastro-esophageal reflux disease without esophagitis; E78.5 Hyperlipidemia, unspecified; R73.9 Hyperglycemia, unspecified; R09.02 Hypoxemia; G47.30 Sleep apnea, unspecified; Z90.710 Acquired absence of both cervix and uterus; Z90.49 Acquired absence of other specified parts of digestive tract; Z86.69 Personal history of other diseases of the nervous system and sense organs; Z82.49 Family history of ischemic heart disease and other diseases of the circulatory system; Z83.3 Family history of diabetes mellitus; Z98.42 Cataract extraction status, left eye; Z98.41 Cataract extraction status, right eye; Z87.01 Personal history of pneumonia (recurrent)
CPT/HCPCS: 36415; 36600; 71020; 71250; 71275; 74176; 80053; 81001; 82805; 83880; 84484; 85025; 87070; 87081; 87205; 93005; 94640; 94644; 94660; 96365; 96375; J1956

== ENCOUNTER 2017-08-13 23:43 | Inpatient (IN) | payer MEDICARE ==
[~2017-08-13] VITALS: Ht 165.1 cm; Wt 68.8 kg
[~2017-08-13 23:43] MED LIST changes: -DEXTSYP8 PO; -FURO40TA4 PO; +IBUP100S11 PO; +MULT1CHW52 PO; -PANT40T PO; +PANT40TA2 PO; -POTA10TA51 PO
[2017-08-14 00:34] LABS: Basophils # (auto) 0 uL; Basophils % (auto) 0.3 % (0.0-2.0); Eosinophils # (auto) 0 uL; Eosinophils % (auto) 0.4 % (0.0-7.0); Hematocrit 39.6 % (36.0-46.0); Hemoglobin 12.9 g/dL (12.2-16.2); Lymphocytes # (auto) 0.6 uL; Lymphocytes % (auto) 7.9 % (10.0-50.0); Mean Corpuscular Hemoglobin 29.2 pg (28.0-32.0); Mean Corpuscular Hgb Conc. 32.6 g/dL (32.0-36.0); Mean Corpuscular Volume 89.5 fL (80.0-100.0); Monocytes # (auto) 0.1 uL; Monocytes % (auto) 0.8 % (0.0-12.0); Neutrophils # (auto) 6.5 uL; Neutrophils % (auto) 90.6 % (37.0-80.0); Platelet Count (auto) 174 10^3/uL (140-450); Red Blood Cells 4.43 10^6/uL (4.0-5.20); Red Cell Distribution Width 14.7 % (11.8-14.3); White Blood Cell 7.1 10^3/uL (4.4-10.8)
[2017-08-14 00:46] LABS: Albumin 2.5 g/dL (3.4-5.0); Anion Gap 8 (5-15); Blood Urea Nitrogen 14 mg/dL (7-18); Calcium 8.8 mg/dL (8.5-10.1); Carbon Dioxide 27 mmol/L (21-32); Chloride 105 mmol/L (98-107); Glucose 125 mg/dL (74-106); Potassium 3.3 mmol/L (3.5-5.1); Sodium 140 mmol/L (136-145)
[2017-08-14 00:49] LABS: Alanine Aminotransferase 22 U/L (13-56); Aspartate Aminotransferase 18 U/L (15-37); BUN/Creatinine Ratio 16.5; GFR African American 83 mL/min; GFR Non-African American 69 mL/min
[2017-08-14 00:54] LABS: Alkaline Phosphatase 85 U/L (45-117); Bilirubin, Total 0.6 mg/dL (0.2-1.0)
[2017-08-14] MEDS ORDERED: IBUPROFEN 800 MG TAB PO ONE (03:00)
[2017-08-14] MEDS ORDERED: SODIUM CHLORIDE 0.9% 1,000 ML IV ONE (05:33)
[2017-08-14] MEDS ORDERED: IPRATROPIUM BROM 0.5 MG/2.5ML INH SOL NEB PRN (06:15)
[2017-08-14] MEDS ORDERED: ACETAMINOPHEN 325 MG TAB PO PRN (06:15)
[2017-08-14] MEDS ORDERED: ALBUTEROL SULF 2.5 MG/0.5ML(0.5%) NEB SOLN NEB PRN (06:15)
[2017-08-14] MEDS ORDERED: NITROGLYCERIN 0.4 MG SL TAB SL PRN (06:15)
[2017-08-14] MEDS ORDERED: ONDANSETRON HCL 4 MG/2 ML VIAL IV PRN (06:15)
[2017-08-14] MEDS ORDERED: MORPHINE SULFATE 4 MG/ML SYR/VIAL IV PRN (06:15)
[2017-08-14] MEDS ORDERED: TEMAZEPAM 15 MG CAP PO PRN (06:15)
[2017-08-14 06:52] LABS: INR 0.97 (0.9-1.15); Partial Thromboplastin Time 24.3 sec (23.78-33.04); Prothrombin Time 10.4 sec (9.27-12.13)
[2017-08-14] MEDS: cefTRIAXone 1GM/10ml IVPUSH 10 ML IV SCH (09:31)
[2017-08-14] MEDS: FUROSEMIDE 40 MG TAB PO SCH (09:32)
[2017-08-14] MEDS: ENOXAPARIN SOD 40 MG/0.4 ML SYRINGE SC SCH (09:32)
[2017-08-14] MEDS: METOPROLOL TARTRATE 25 MG TAB PO SCH (09:32)
[2017-08-14] MEDS: FAMOTIDINE 20 MG TAB PO SCH ×2 (09:32→21:02)
[2017-08-14 09:48] VITALS: BP 112/65
[2017-08-14] MEDS: HYDROcodone-ACET 5/325MG TAB PO PRN ×3 (10:58→22:20)
[2017-08-14] MEDS ORDERED: IOHEXOL 350 MG/ML 100ML IJ ONE (14:43)
[2017-08-14] MEDS ORDERED: POTASSIUM CHL 10% (20 MEQ/15ML) 15ml ORAL SOLN PO ONE (15:00)
[2017-08-14 22:00] VITALS: BP 113/70
[2017-08-15 04:35] VITALS: BP 111/63
[2017-08-15] MEDS: HYDROcodone-ACET 5/325MG TAB PO PRN ×4 (05:15→22:34)
[2017-08-15 05:54] LABS: Basophils # (auto) 0 uL; Basophils % (auto) 0.4 % (0.0-2.0); Eosinophils # (auto) 0.1 uL; Eosinophils % (auto) 2.1 % (0.0-7.0); Hematocrit 36.6 % (36.0-46.0); Lymphocytes % (auto) 19.5 % (10.0-50.0); Mean Corpuscular Hemoglobin 29.1 pg (28.0-32.0); Mean Corpuscular Hgb Conc. 32.9 g/dL (32.0-36.0); Mean Corpuscular Volume 88.6 fL (80.0-100.0); Monocytes # (auto) 0.4 uL; Monocytes % (auto) 8.5 % (0.0-12.0); Neutrophils # (auto) 3.6 uL; Neutrophils % (auto) 69.5 % (37.0-80.0); Nucleated Red Blood Cells % 0.1 %; Platelet Count (auto) 113 10^3/uL (140-450); Red Blood Cells 4.13 10^6/uL (4.0-5.20); Red Cell Distribution Width 14.8 % (11.8-14.3); White Blood Cell 5.2 10^3/uL (4.4-10.8)
[2017-08-15 06:12] LABS: Albumin 2.2 g/dL (3.4-5.0); BUN/Creatinine Ratio 25.5
[2017-08-15 06:19] LABS: Bilirubin, Total 0.5 mg/dL (0.2-1.0); Total Protein 6.8 g/dL (6.4-8.2)
[2017-08-15 09:17] VITALS: BP 139/77
[2017-08-15] MEDS: cefTRIAXone 1GM/10ml IVPUSH 10 ML IV SCH (09:24)
[2017-08-15] MEDS: FAMOTIDINE 20 MG TAB PO SCH ×2 (09:28→20:14)
[2017-08-15] MEDS: ENOXAPARIN SOD 40 MG/0.4 ML SYRINGE SC SCH (09:28)
[2017-08-15] MEDS: FUROSEMIDE 40 MG TAB PO SCH (09:28)
[2017-08-15] MEDS: METOPROLOL TARTRATE 25 MG TAB PO SCH (09:29)
[2017-08-15] MEDS: POTASSIUM CHL 10% (20 MEQ/15ML) 15ml ORAL SOLN PO SCH (09:29)
[2017-08-15] MEDS ORDERED: GABAPENTIN 300 MG CAP PO ONE (09:30)
[2017-08-15 13:00] VITALS: BP 147/84
[2017-08-15 16:57] VITALS: BP 140/75
[2017-08-15 22:00] VITALS: BP 131/83
[2017-08-15] MEDS ORDERED: GABAPENTIN 300 MG CAP PO SCH (22:00)
[2017-08-16 05:06] VITALS: BP 120/64
[2017-08-16 08:16] VITALS: BP 110/71
[2017-08-16] MEDS: FAMOTIDINE 20 MG TAB PO SCH (09:39)
[2017-08-16] MEDS: POTASSIUM CHL 10% (20 MEQ/15ML) 15ml ORAL SOLN PO SCH (09:39)
[2017-08-16] MEDS: cefTRIAXone 1GM/10ml IVPUSH 10 ML IV SCH (09:39)
[2017-08-16] MEDS: ENOXAPARIN SOD 40 MG/0.4 ML SYRINGE SC SCH (09:39)
[2017-08-16] MEDS: FUROSEMIDE 40 MG TAB PO SCH (09:40)
[2017-08-16] MEDS: METOPROLOL TARTRATE 25 MG TAB PO SCH (09:46)
[2017-08-16 12:36] VITALS: BP 133/78
[2017-08-16 16:25] VITALS: BP 120/70
[2017-08-16 19:12] VITALS: BP 120/70
[2017-08-21] MEDS ORDERED: CIPR-173 PO (11:59)
[2017-08-21] MEDS ORDERED: IBUP800T24 PO (11:59)
== END 2017-08-16 19:56 | disposition home or self-care (01) | DRG 193 ==
LOC: ER 23:43 → EDBD 23:43 → TELE 23:44 → TELE-CENTR 08-14 08:34
PROVIDERS: ADMIT Nurse Practitioner; ATTEND Family Medicine
DX: J18.1 Lobar pneumonia, unspecified organism (principal); E43 Unspecified severe protein-calorie malnutrition; G62.9 Polyneuropathy, unspecified; I48.91 Unspecified atrial fibrillation; R06.03 Acute respiratory distress; I11.0 Hypertensive heart disease with heart failure; I50.9 Heart failure, unspecified; R13.10 Dysphagia, unspecified; Z99.81 Dependence on supplemental oxygen; J44.0 Chronic obstructive pulmonary disease with (acute) lower respiratory infection; J44.1 Chronic obstructive pulmonary disease with (acute) exacerbation; K21.9 Gastro-esophageal reflux disease without esophagitis; E78.00 Pure hypercholesterolemia, unspecified; E78.5 Hyperlipidemia, unspecified; Z82.49 Family history of ischemic heart disease and other diseases of the circulatory system; Z86.711 Personal history of pulmonary embolism; Z83.3 Family history of diabetes mellitus; Z90.710 Acquired absence of both cervix and uterus; J20.9 Acute bronchitis, unspecified; Z90.49 Acquired absence of other specified parts of digestive tract
CPT/HCPCS: 36415; 36600; 71045; 71275; 80053; 82805; 83880; 84443; 84484; 85025; 85379; 85610; 85730; 93005; 93970; 94640

== ENCOUNTER → 2017-08-20 | Outpatient (CLI) | payer MEDICARE, OTHER ==
[~2017-08-20] MED LIST changes: +CIPR-173 PO; +IBUP800T24 PO
== END | disposition home or self-care (01) ==
LOC: LAB 10:29
PROVIDERS: ATTEND Internal Medicine
DX: J18.9 Pneumonia, unspecified organism (principal); K21.9 Gastro-esophageal reflux disease without esophagitis; E78.5 Hyperlipidemia, unspecified; J44.9 Chronic obstructive pulmonary disease, unspecified; E78.00 Pure hypercholesterolemia, unspecified; I11.0 Hypertensive heart disease with heart failure; I50.9 Heart failure, unspecified
CPT/HCPCS: 87070; 87077; 87186; 87205

== ENCOUNTER 2017-08-22 08:19 | Day surgery (SDC) | payer MEDICARE, OTHER ==
[2017-08-21 11:44] LABS: Basophils # (auto) 0 uL; Basophils % (auto) 0.7 % (0.0-2.0); Eosinophils # (auto) 0.1 uL; Eosinophils % (auto) 1.9 % (0.0-7.0); Hemoglobin 13.4 g/dL (12.2-16.2); Lymphocytes # (auto) 2.1 uL; Mean Corpuscular Hemoglobin 28.9 pg (28.0-32.0); Mean Corpuscular Hgb Conc. 32.7 g/dL (32.0-36.0); Mean Corpuscular Volume 88.4 fL (80.0-100.0); Monocytes # (auto) 0.6 uL; Monocytes % (auto) 9.3 % (0.0-12.0); Neutrophils # (auto) 3.5 uL; Neutrophils % (auto) 55.1 % (37.0-80.0); Platelet Count (auto) 196 10^3/uL (140-450); Red Blood Cells 4.64 10^6/uL (4.0-5.20); Red Cell Distribution Width 14.5 % (11.8-14.3); White Blood Cell 6.3 10^3/uL (4.4-10.8)
[2017-08-21 11:48] LABS: Urine Bacteria NONE SEEN /hpf (None Seen); Urine Blood Negative /uL (Negative); Urine Mucus FEW (None Seen); Urine Specific Gravity 1.015 (1.001-1.035); Urine WBC 1 /hpf (0 - 5)
[2017-08-21 11:58] LABS: INR 0.98 (0.9-1.15); Partial Thromboplastin Time 25.9 sec (23.78-33.04); Prothrombin Time 10.5 sec (9.27-12.13)
[2017-08-21 12:03] LABS: Albumin 2.7 g/dL (3.4-5.0); BUN/Creatinine Ratio 18.8; Bilirubin, Total 0.4 mg/dL (0.2-1.0); Calcium 9.2 mg/dL (8.5-10.1); Potassium 3.7 mmol/L (3.5-5.1); Total Protein 7.6 g/dL (6.4-8.2)
[~2017-08-22] VITALS: Ht 165.1 cm; Wt 65.8 kg
[~2017-08-22 08:19] MED LIST changes: -ALBUAER3 IN; -IBUP100S11 PO; -MULT1CHW52 PO; -PANT40TA2 PO
[2017-08-22] MEDS ORDERED: PROPOFOL 10 MG/ML 20 ML IV ONE (09:30)
[2017-08-22] MEDS ORDERED: fentaNYL CITRATE 100 MCG/2 ML VL ONE (09:44)
[2017-08-22] MEDS ORDERED: MIDAZOLAM HCL 1MG/1ML-2 ML VIAL ONE (09:44)
[2017-08-22] MEDS ORDERED: ONDANSETRON HCL 4 MG/2 ML VIAL IV ONE (10:15)
[2017-08-22] MEDS ORDERED: hydrALAZINE HCL 20 MG/ML VL IV PRN (10:15)
[2017-08-22] MEDS ORDERED: ePHEDrine SULFATE 50 MG/ML AMP IV PRN (10:15)
[2017-08-22 10:36] VITALS: BP 131/86
[2017-08-22] MEDS ORDERED: fentaNYL CITRATE 100 MCG/2 ML VL IV ONE (11:00)
== END 2017-08-22 10:48 | disposition home or self-care (01) ==
LOC: GI 08:19
PROVIDERS: ATTEND Internal Medicine Gastroenterology
DX: R13.10 Dysphagia, unspecified (principal); J44.9 Chronic obstructive pulmonary disease, unspecified; K21.9 Gastro-esophageal reflux disease without esophagitis; I50.9 Heart failure, unspecified; Z88.1 Allergy status to other antibiotic agents; Z98.51 Tubal ligation status; Z90.710 Acquired absence of both cervix and uterus; Z87.891 Personal history of nicotine dependence; Z90.49 Acquired absence of other specified parts of digestive tract; Z82.3 Family history of stroke; Z83.3 Family history of diabetes mellitus; Z79.899 Other long term (current) drug therapy
CPT/HCPCS: 36415; 43248; 80053; 81001; 85025; 85610; 85730; J2250; J2704; J3010; J7030

== ENCOUNTER → 2017-09-03 | Outpatient (CLI) | payer MEDICARE, OTHER | END | disposition home or self-care (01) | LOC: LAB 15:06 | PROVIDERS: ATTEND Internal Medicine | DX: J98.11 Atelectasis (principal); E78.5 Hyperlipidemia, unspecified; I11.0 Hypertensive heart disease with heart failure; I50.9 Heart failure, unspecified | CPT/HCPCS: 87070; 87077; 87081; 87186; 87205 ==

== ENCOUNTER → 2017-09-22 | Outpatient (CLI) | payer MEDICARE, OTHER | END | disposition home or self-care (01) | LOC: LAB 08:26 | PROVIDERS: ATTEND Internal Medicine | DX: I11.0 Hypertensive heart disease with heart failure (principal); I50.23 Acute on chronic systolic (congestive) heart failure; E78.5 Hyperlipidemia, unspecified; E78.00 Pure hypercholesterolemia, unspecified; F41.9 Anxiety disorder, unspecified; J44.1 Chronic obstructive pulmonary disease with (acute) exacerbation; Z79.899 Other long term (current) drug therapy | CPT/HCPCS: 87070; 87077; 87186; 87205 ==

== ENCOUNTER → 2017-11-07 | Outpatient (CLI) | payer MEDICARE, OTHER | END | disposition home or self-care (01) | LOC: LAB 11:23 | PROVIDERS: ATTEND Internal Medicine | DX: Z22.322 Carrier or suspected carrier of Methicillin resistant Staphylococcus aureus (principal); Z88.1 Allergy status to other antibiotic agents | CPT/HCPCS: 87070; 87205 ==